=== PATIENT | female | born 1960 | race Caucasian/White ===

== ENCOUNTER 2017-03-21 10:49 | Emergency (ER) | payer OTHER ==
[~2017-03-21] VITALS: Ht 160 cm; Wt 81.7 kg
[2017-03-21 10:56] VITALS: BP 150/105
--- NOTE | 2017-03-21 11:12 | NUR ---
PATIENT TAKEN TO BED #6
--- NOTE | 2017-03-21 11:13 | NUR ---
56/F BIB SELF C/O EPIGASTRIC PAIN BLOATING X YESTERDAY. HX OF HTN, GASTRITIS, DM, PATIENT DENIES N/V/D; SKIN IS PINK/WARM/DRY; AAOX4 WITH EVEN AND STEADY GAIT; LUNGS CLEAR BL; HR EVEN AND REGULAR; PT DENIES ANY FEVER, CP, SOB, OR COUGH AT THIS TIME; PATIENT STATES PAIN OF 8/10 AT THIS TIME; VSS; PATIENT POSITIONED FOR COMFORT; HOB ELEVATED; BEDRAILS UP X2; BED DOWN. ER MD MADE AWARE OF PT STATUS.
--- NOTE | 2017-03-21 11:28 | NUR ---
Quinton melvin in [facility] - 03/21/17 at 1128 by [email or web address] Patient being evaluated by DR GARCIA at bedside.
--- NOTE | 2017-03-21 12:04 | NUR ---
Patient being evaluated by DR GARCIA at bedside.
[2017-03-21] MEDS ORDERED: NACL 0.9% 1,000 ML IV SCH (12:09)
[2017-03-21] MEDS ORDERED: ONDANSETRON 4 MG/2 ML VIAL IVP ONE (12:10)
[2017-03-21] MEDS ORDERED: HYDROmorphone PFS 2 MG/ML SYR IVP ONE (12:10)
[2017-03-21 12:29] LABS: HEMATOCRIT 41.9 % (36-48); HEMOGLOBIN 13.8 g/dL (12.0-16.0); MEAN CORPUSCULAR HEMOGLOBIN 30 pg (27-31); MEAN CORPUSCULAR HGB CONC 33 g/dL (33-37); MEAN CORPUSCULAR VOLUME 92 fL (80-94); PLATELET COUNT (AUTO) 187 K/uL (140-450); RED BLOOD CELL COUNT(AUTO) 4.54 MIL/uL (4.20-5.40); RED CELL DISTRIBUTION WIDTH 12.8 % (11.6-13.7); WHITE BLOOD COUNT (AUTO) 4.6 K/uL (4.8-10.8)
--- NOTE | 2017-03-21 12:43 | NUR ---
US AT BEDSIDE
[2017-03-21 12:48] LABS: LYMPHOCYTES % (MANUAL) 45 % (20-46); MONOCYTES % (MANUAL) 6 % (5-12)
[2017-03-21 13:01] LABS: ALBUMIN 3.7 g/dL (3.4-5.0); ANION GAP 9.7 (8-16); CARBON DIOXIDE 30.8 mmol/L (21-32); CREATININE 0.7 mg/dL (0.6-1.3); POTASSIUM 4.5 mmol/L (3.5-5.1); TOTAL BILIRUBIN 0.7 mg/dL (0.0-1.0)
--- NOTE | 2017-03-21 13:03 | NUR ---
PATIENT TAKEN FOR CT.SCAN ABD/PELVIS VIA GURNEY
--- NOTE | 2017-03-21 14:18 | NUR ---
Patient being reevaluated by DR GARCIA at bedside.
[2017-03-21] MEDS ORDERED: DICYCLOMINE HCL LIQUID 20 MG, ALUMINUM HYD/MAG/SIMETHICONE 30 ML, LIDOCAINE VISCOUS 2% ... PO ONE ×3 (14:25)
--- NOTE | 2017-03-21 14:50 | NUR ---
IV removed, catheter intact and site benign. Applied folded 4x4 gauze and tape to stop bleeding.
--- NOTE | 2017-03-21 14:53 | NUR ---
Patient discharged with v/s stable. Written and verbal after care instructions given and explained. Patient alert, oriented and verbalized understanding of instructions. Ambulatory with steady gait. All questions addressed prior to discharge. ID band removed. Patient advised to follow up with PMD. Rx of prilosec OTC given. Patient educated on indication of medication including possible reaction and side effects. Opportunity to ask questions provided and answered.
[2017-03-21 14:55] VITALS: BP 134/80
[2017-03-21 15:16] LABS: APPEARANCE,URINE CLEAR (CLEAR); BILIRUBIN,URINE NEGATIVE (NEGATIVE); BLOOD, URINE NEGATIVE (NEGATIVE); COLOR,URINE YELLOW (YELLOW); LEUKOCYTE ESTERASE ,URINE NEGATIVE (NEGATIVE); NITRITE, URINE NEGATIVE (NEGATIVE); PH,URINE 6.5 (5.0-9.0); UGLUCOSE NEGATIVE (NEGATIVE)
== END 2017-03-21 14:53 | disposition home or self-care (01) ==
LOC: MED 10:49
DX: K29.00 Acute gastritis without bleeding (principal); E11.9 Type 2 diabetes mellitus without complications; K21.9 Gastro-esophageal reflux disease without esophagitis; I10 Essential (primary) hypertension
CPT/HCPCS: 36415; 74176; 76705; 80053; 81003; 81025; 82150; 83690; 85025; 86677; 96361; 96374; 96375; 99285; J1170; J2405; J7030; Q0092

== ENCOUNTER 2022-04-15 05:57 | Day surgery (SDC) | payer OTHER ==
[~2022-04-15] VITALS: Ht 167.6 cm; Wt 81.2 kg
[2022-04-15] MEDS ORDERED: fentaNYL citrate 0.05 MG/ML VIAL ONE (07:41)
[2022-04-15] MEDS ORDERED: MIDAZOLAM 2 MG/2 ML VIAL ONE (07:41)
[2022-04-15] MEDS ORDERED: MIDAZOLAM 2 MG/2 ML VIAL IVP ONE (09:15)
== END 2022-04-15 09:25 | disposition home or self-care (01) ==
LOC: MDS 05:57 → MMU 06:17 → MDS 09:25
PROVIDERS: ATTEND Internal Medicine Gastroenterology
DX: K92.1 Melena (principal)
CPT/HCPCS: 43235; J2250; J3010